=== PATIENT | female | born 1960 | race Caucasian/White ===

== ENCOUNTER 2019-02-28 14:24 | Emergency (ER) | payer OTHER ==
--- NOTE | 2019-02-28 14:25 | EDPHY ---
H & P Time Seen by Provider: 02/28/19 14:25 Constitutional: Initial Vital Signs Temperature (C) 36.4 C 02/28/19 14:30 Heart Rate 56 L 02/28/19 14:30 Respiratory Rate 18 02/28/19 14:30 Blood Pressure 138/86 H 02/28/19 14:30 O2 Sat (%) 99 02/28/19 14:30 O2 Delivery Mode Room Air Allergies/Adverse Reactions: No Known Allergies Allergy (Unverified 02/28/19 14:35) Home Medications: Medication Instructions Recorded Estradiol 02/28/19 Hydrocodone/APAP 5/325 [Piedmont 1 - 2 each PO Q4-6PRN PRN #20 tab 02/28/19 5/325] Ibuprofen [Motrin] 800 mg PO Q8 #20 tab 02/28/19 Medical Decision Making - Diagnostics Imaging Results: Imaging Impressions Humerus X-Ray 02/28/19 14:29 Impression: Left humeral neck fracture as detailed above. Imaging: I viewed and interpreted images myself ED Course/Re-evaluation: CHIEF COMPLAINT: Left shoulder injury HISTORY OF PRESENT ILLNESS: The patient is a 59 y/o female arriving via EMS for a left shoulder injury while skiing today at [place]. The patient was skiing down a run when she was hit from behind and fell onto her left shoulder. She denies hitting her head or loss of consciousness; she was wearing a helmet. Since the fall, she has been unable to move the left shoulder due to pain. pilot [employer] gave the patient 10mg IV Morphine. While en route the patient was still in pain, so EMS gave her 40mg IV Ketamine, which improved her pain. She denies any other injuries including leg or hip pain. No fever, headache, body aches, lightheadedness, chest pain, heart palpitations, shortness of breath, cough, abdominal pain, urinary or bowel complaints, numbness, paresthesias. REVIEW OF SYSTEMS: A comprehensive 10 system review of systems is otherwise negative aside from elements mentioned in the history of present illness and medical decision making. PHYSICAL EXAM: HR, BP, O2 Sat, RR. Temp noted General Appearance: Alert, well hydrated, appropriate, and non-toxic appearing. Head: Atraumatic without scalp tenderness or obvious injury Eyes: Pupils equal, round, reactive to light and accommodation, EOMI, no trauma , no injection. Ears: Clear bilaterally, no perforation, normal landmarks Nose: Atraumatic, no rhinorrhea, clear. Throat: There is no erythema or exudates, no lesions, normal tonsils, mucus membranes moist. Neck: Supple, 2+ carotid upstroke, nontender, no lymphadenopathy. Respiratory: No retractions, no distress, no wheezes, and no accessory muscle use. Lungs are clear to auscultation bilaterally. Cardiovascular: Regular rate and rhythm, no murmurs, rubs, or gallops. Bilateral carotid, radial, dorsalis pedis, and posterior tibial pulses intact. Good capillary refill all extremities. Gastrointestinal: Abdomen is soft, nontender, non-distended, no masses, no rebound, no guarding, no peritoneal signs. Musculoskeletal: Swelling over left shoulder, no ROM secondary to pain. Patient is neurovascularly intact, the joints above and below are intact, no signs of compartment syndrome, no open fracture, no tenting of the skin. Otherwise normal active ROM of all extremities, atraumatic. Neurological: Alert, appropriate, and interactive. The patient has normal DTRs and non-focal cranial nerves, motor, sensory, and cerebellar exam. Skin: No rashes, good turgor, no nodules on palpation. Past medical history: Denies Past surgical history: Denies Family history: Denies Social history: Employed, , does not abuse drugs or alcohol DIAGNOSTICS/PROCEDURES/CRITICAL CARE TIME: Left shoulder x-ray: Comminuted, impacted fracture of left humeral head with minimal displacement and without dislocation DIFFERENTIAL DIAGNOSIS: The differential diagnosis for the patient's shoulder injury included but was not limited to fracture, ligamentous injury, contusion, muscular strain, and rotator cuff injury. MEDICAL DECISION MAKING: The patient is a 59 y/o female arriving via EMS for a left shoulder injury while skiing today at [place]. Since the fall, she has been unable to move the left shoulder due to pain. [employer] gave the patient 10mg IV Morphine. While en route the patient was still in pain, so EMS gave her 40mg IV Ketamine. On exam the patient has swelling over the left shoulder, with no ROM secondary to pain. Patient is neurovascularly intact, the joints above and below are intact, no signs of compartment syndrome, no open fracture, no tenting of the skin. Left shoulder x-ray ordered. 1440: I reviewed patient's shoulder x-ray which reveals a comminuted, impacted fracture of left humeral head with minimal displacement and without dislocation. I will page the orthopedic surgeon general practitioner. 1445: Reassessed patient and discussed imaging findings. Patient will be placed in a sling. 1505: Reassessed patient and discussed imaging findings with the patient and her . We are still awaiting orthopedic's call back. 1603: I consulted with Dr. Calhoun, orthopedic surgeon, regarding this patient. He will consult on this patient in the emergency department. 1620: Dr. Calhoun has consulted on this patient; she is now safe for discharge. - Data Points Medications Given: Discontinued Medications Hydrocodone Bitart/Acetaminophen (Piedmont 5/325mg Prepack#6) 1 btl TAKEHOME EDNOW ONE Stop: 02/28/19 14:51 Last Admin: 02/28/19 15:11 Dose: 1 btl Ondansetron HCl (Zofran) 4 mg IVP EDNOW ONE Stop: 02/28/19 15:20 Last Admin: 02/28/19 15:21 Dose: 4 mg Ondansetron HCl (Zofran Odt 4 Mg Prepack#2) 1 btl TAKEHOME EDNOW ONE Stop: 02/28/19 16:12 Last Admin: 02/28/19 16:19 Dose: 1 btl Departure - Departure Disposition: Home, Routine, Self-Care Clinical Impression: Fracture of humeral head, closed Qualifiers: Encounter type: initial encounter Laterality: left Qualified Code(s): S42.292A - Other displaced fracture of upper end of left humerus, initial encounter for closed fracture Condition: Good Instructions: Scapular Fracture (ED) Additional Instructions: 1. Rest, ice, elevation. 2. Take Piedmont and Motrin as prescribed. 3. Follow up with an orthopedic surgeon within one week. Please call to schedule an appointment. 4. Return to the emergency department for worsening pain, swelling, numbness, weakness or other concerns. 5. Wear sling at all times until reevaluation. Referrals: Chivo Calhoun MD [Medical Doctor] - As per Instructions Prescriptions: Hydrocodone/APAP 5/325 [Piedmont 5/325] 1 - 2 each PO Q4-6PRN PRN #20 tab PRN Reason: Pain, Moderate Ibuprofen [Motrin] 800 mg PO Q8 #20 tab Report Scribed for: Torey Sandoval Report Scribed by: Leann Gaytan Date of Report: 02/28/19 Time of Report: 14:25
[2019-02-28] MEDS ORDERED: HYDROCOD/APAP 5/325 PREPACK#6 BTL TAKEHOME ONE (14:50)
[2019-02-28] MEDS ORDERED: ONDANSETRON 4 MG/2 ML VIAL IVP ONE (15:19)
[2019-02-28] MEDS ORDERED: ONDANSETRON 4 MG/2 ML VIAL ONE (15:19)
[2019-02-28 15:50] VITALS: BP 121/68
[2019-02-28] MEDS ORDERED: ONDANSETRON 4MG PREPACK#2 BTL TAKEHOME ONE (16:11)
[2019-02-28] MEDS ORDERED: ONDANSETRON DISINTEGRATING 4 MG TAB PO ONE (16:30)
== END 2019-02-28 16:59 | disposition home or self-care (01) ==
DX: S42.292A Other displaced fracture of upper end of left humerus, initial encounter for closed fracture (principal); V00.328A Other snow-ski accident, initial encounter; Y93.23 Activity, snow (alpine) (downhill) skiing, snowboarding, sledding, tobogganing and snow tubing; Y92.828 Other wilderness area as the place of occurrence of the external cause; Y99.9 Unspecified external cause status
CPT/HCPCS: 96374; A4565; J2405